=== PATIENT | male | born 1960 | race African-American/Black ===

== ENCOUNTER 2019-12-14 10:16 | Inpatient (IN) | payer OTHER ==
[~2019-12-14] VITALS: Ht 175.2 cm; Wt 95.5 kg
[2019-12-14 10:33] VITALS: BP 156/102
[2019-12-14 11:15] VITALS: BP 175/92
--- NOTE | 2019-12-14 11:15 | NUR ---
PATIENT BEDSIDE REPORT GIVEN TO SYLVIA HARRELL. PATIENT TAKEN UP BY THIS NURSE.
[2019-12-14] MEDS ORDERED: FLOMAX0.4 MG PO (11:51)
[2019-12-14] MEDS ORDERED: LISINOPRIL40 MG PO (11:51)
[2019-12-14] MEDS ORDERED: NORVASC5 MG PO (11:53)
[2019-12-14] MEDS ORDERED: FLUOXETINE40 MG PO (11:54)
--- NOTE | 2019-12-14 12:04 | NUR ---
MSADMTime: N A 59 year old MALE admitted to under services of NICOLE MENDEZ DO Pt. arrived via CART from ER. Chief complaint: MERLENE. SYLVIA MAN
[2019-12-14 12:52] LABS: BASO % 0.3 % (0.0-1.0); EOS % 0.5 % (1.0-4.0); LYMPH # 2.9 10*3/uL (1.3-4.4); LYMPH % 43.6 % (27.0-41.0); MEAN CORPUSCULAR HGB 27.9 pg (27.0-31.0); MEAN CORPUSCULAR HGB CONC 32.9 g/dl (33.0-37.0); MEAN PLATELET VOLUME 10.4 fl (9.6-12.3); MONO # 0.7 10*3/uL (0.1-1.0); MONO % 10.3 % (3.0-9.0); NEUT % 45.1 % (47.0-73.0); PLATELET COUNT AUTOMATED 174 10*3/uL (130-400); RED BLOOD COUNT 4.94 10*6/uL (4.50-5.90); RED CELL DISTRI WIDTH 14.1 % (0-14.5); WHITE BLOOD COUNT 6.6 10*3/uL (4.8-10.8)
[2019-12-14 13:00] VITALS: BP 163/95
[2019-12-14 13:08] LABS: ALBUMIN 3.6 gm/dl (3.1-4.5); ALKALINE PHOSPHATASE 117 U/L (45-117); BUN 14 mg/dl (7-24); CHLORIDE 108 mmol/L (98-107); CREATININE 1.06 mg/dL (0.70-1.30); POTASSIUM 3.9 mmol/L (3.5-5.1); SGOT/AST 151 IU/L (3-35); SGPT/ALT 127 U/L (12-78); SODIUM 138 mmol/L (136-145)
[2019-12-14 13:10] LABS: ETHYL ALCOHOL < 3.0 mg/dl (<3)
[2019-12-14 13:29] LABS: CLARITY SL CLOUDY (CLEAR); COLOR YELLOW (YELLOW)
[2019-12-14 13:33] LABS: BILIRUBIN 1+ (NEGATIVE); BLOOD NEGATIVE (NEGATIVE); GLUCOSE NEGATIVE (NEGATIVE); KETONE NEGATIVE (NEGATIVE); LEUKO ESTERASE NEGATIVE (NEGATIVE); NITRITE NEGATIVE (NEGATIVE)
[2019-12-14 13:34] LABS: URINE AMPHETAMINES < 1000 (1000ng/ml); URINE BARBITURATES < 200 (200ng/ml); URINE BENZODIAZEPINES > 200 (200ng/ml); URINE CANNABINOIDS (THC) > 50 (50ng/ml); URINE COCAINE < 300 (300ng/ml); URINE METHADONE < 300 (300ng/ml); URINE OPIATES < 300 (300ng/ml)
[2019-12-14 13:35] LABS: BACTERIA 2+
[2019-12-14 13:36] LABS: FINE GRANULAR CAST TNTC; MUCOUS 1+
[2019-12-14 13:41] LABS: URINE PHENCYCLIDINE < 25 (25ng/ml)
--- NOTE | 2019-12-14 14:48 | NUR ---
[place] Staff in to see patient. Patient meets [facility] Criteria. [facility]. Kenrick Smith M.A.Gregg, Boiler Tube Reamer.
[2019-12-14 16:00] VITALS: BP 156/89
[2019-12-14 20:00] VITALS: BP 150/62
[2019-12-15] VITALS (8 sets, daily range): BP systolic 158–200; BP diastolic 72–110
--- NOTE | 2019-12-15 00:19 | NUR ---
NOTIFIED DR. BELLE OF PATIENTS BP, 192/100. PATIENT ASYMPTOMATIC. SEE NEW ORDERS
--- NOTE | 2019-12-15 02:20 | NUR ---
NOTIFIED DR. BELLE OF [facility]. SEE NEW ORDERS.
--- NOTE | 2019-12-15 13:06 | NUR ---
[place] STAFF IN TO SEE PATIENT. PATIENT IS GOING TO [facility]. PATIENT IS SCHEDULED TO GO THURSDAY, December. PATIENT REPORTS THAT HE WILL GO HOME FIRST ON THURSDAY AFTER HE DISCHARGES FROM [facility] AND REPORT TO [facility] ON THURSDAY MORNING. PATIENT AGREES AND UNDERSTANDS HIS AFTERCARE PLAN. CASTILLO DOBSON B.A. ENERGY AND CONSERVATION TECHNICIAN
[2019-12-16] VITALS: BP 175/96
--- NOTE | 2019-12-16 00:30 | NUR ---
NOTIFIED DR. BELLE OF BP. NO NEW ORDERS RECEIVED. WILL CONTINUE TO MONITOR.
[2019-12-16 04:00] VITALS: BP 158/80
--- NOTE | 2019-12-16 04:00 | NUR ---
PATIENT SLEEPING, NO SIGNS OF DISTRESS. RESPIRATIONS EASY, NON LABORED. WILL CONTINUE TO MONITOR.
[2019-12-16 08:00] VITALS: BP 151/87
[2019-12-16 12:00] VITALS: BP 126/79; BP 148/79
[2019-12-16 16:00] VITALS: BP 139/86
--- NOTE | 2019-12-16 17:09 | NUR ---
[facility] staff to see patient and confirm after care plan of [facility] upon discharge. Kenrick Smith M.A.Ed, Nursery School Attendant.
--- NOTE | 2019-12-16 19:50 | NUR ---
MEDICATED WITH TYLENOL FOR C/O HEADACHE.
[2019-12-16 20:00] VITALS: BP 159/103
--- NOTE | 2019-12-16 20:30 | NUR ---
VOICES NO FURTHER C/O HEADACHE AT THIS TIME; TYLENOL EFFECTIVE.
--- NOTE | 2019-12-16 21:02 | NUR ---
CALLED RESIDENT TO REPORT ELEVATED BP; NO ANSWER. WILL TRY AGAIN.
--- NOTE | 2019-12-16 21:10 | NUR ---
CALLED DR. BELLE PERTAINING TO PATIENT'S ELEVATED BP; NO NEW ORDERS RECEIVED.
--- NOTE | 2019-12-16 21:34 | NUR ---
MEDICATED WITH VISTARIL FOR C/O ANXIETY.
--- NOTE | 2019-12-16 22:20 | NUR ---
RESTING IN BED WITH EYES CLOSED; VISTARIL GIVEN EARLIER APPARENTLY EFFECTIVE.
[2019-12-17] VITALS (7 sets, daily range): BP systolic 142–183; BP diastolic 78–100
--- NOTE | 2019-12-17 01:37 | NUR ---
MEDICATED WITH APRESOLINE PER M.D. ORDERS FOR ELEVATED BP.
--- NOTE | 2019-12-17 06:05 | NUR ---
CALLED DR. BELLE PERTAINING TO PT'S ELEVATED BLOOD PRESSURE & PATIENT REFUSING BLOOD WORK.
--- NOTE | 2019-12-17 08:36 | NUR ---
PT MEDICATED WITH PO ROBAXIN AND VISTARIL PER PRN ORDER FOR C/O MUSCLE ACHES AND ANXIETY. WILL MONITOR EFFECTIVENESS.
--- NOTE | 2019-12-17 09:02 | NUR ---
NOTIFIED REGARDING AM BP. NO NEW ORDERS AT THIS TIME. WILL RECHECK BP IN 1 HOUR.
--- NOTE | 2019-12-17 09:36 | NUR ---
ROBAXIN AND VISTARIL EFFECTIVE AT THIS TIME. WILL CONTINUE TO MONITOR.
--- NOTE | 2019-12-17 10:00 | NUR ---
BP NOW 156/78. EARLIER MEDS APPEAR EFFECTIVE AT THIS TIME. WILL CONTINUE TO MONITOR.
--- NOTE | 2019-12-17 10:49 | NUR ---
LAB CALLED REGARDING PENDING BLOODWORK ORDERED. PT REFUSED THIS AM. PER KAREN MYRICK TO DISCONTINUE LABS ORDERED THIS AM.
--- NOTE | 2019-12-17 16:00 | NUR ---
Patient resting. Responding to scheduled medications with fewer complaints of pain and anxiety.
--- NOTE | 2019-12-17 17:36 | NUR ---
PT MEDICATED WITH PO MAALOX AND BENTYL PER PRN ORDER FOR C/O INDIGESTION AND STOMACH CRAMPS. WILL MONITOR EFFECTIVENESS.
--- NOTE | 2019-12-17 18:36 | NUR ---
EARLIER MEDS EFFECTIVE AT THIS TIME.
--- NOTE | 2019-12-17 21:30 | NUR ---
REFUSES ANY PRN MEDICATIONS.
[2019-12-18] VITALS: BP 148/76
--- NOTE | 2019-12-18 | NUR ---
RESTING IN BED WITH EYES CLOSED; CALL LIGHT WITHIN REACH.
--- NOTE | 2019-12-18 07:55 | NUR ---
PT MEDICATED WITH PO ROBAXIN, MOTRIN AND VISTARIL PER PRN ORDER FOR C/O MUSCLE ACHES, RIGHT HIP PAIN AND ANXIETY. RATES PAIN 12/11. WILL MONITOR EFFECTIVENESS. CALL LIGHT WITHIN REACH.
--- NOTE | 2019-12-18 07:57 | NUR ---
IN TO SEE PATIENT REGARDING PLAN OF CARE.
[2019-12-18 08:00] VITALS: BP 158/90
--- NOTE | 2019-12-18 08:55 | NUR ---
EARLIER MEDS EFFECTIVE AT THIS TIME. WILL CONTINUE TO MONITOR.
--- NOTE | 2019-12-18 09:33 | NUR ---
IN TO SEE PATIENT.
--- NOTE | 2019-12-18 11:38 | NUR ---
PT MEDICATED WITH PO SENOKOT AND BENTYL PER PRN ORDER FOR C/O CONSTIPATION AND ABD CRAMPS. WILL MONITOR EFFECTIVENESS.
[2019-12-18 12:00] VITALS: BP 150/82
[2019-12-18 16:00] VITALS: BP 123/87
--- NOTE | 2019-12-18 16:00 | NUR ---
PATIENT RESTING. NO VOICED COMPLAINTS. VSS. WILL CONTINUE TO MONITOR. CALL LIGHT WITHIN REACH.
[2019-12-18 20:00] VITALS: BP 160/80
--- NOTE | 2019-12-18 20:00 | NUR ---
PT AWAKE IN BED. DENIES ANY NEEDS. WILL MONITOR.
--- NOTE | 2019-12-18 22:07 | NUR ---
PT ASLEEP IN BED, EASILY AROUSABLE. DENIES ANY NEEDS. WILL MONITOR. CALL LIGHT IN REACH.
[2019-12-19] VITALS: BP 154/79
[2019-12-19 08:00] VITALS: BP 160/52
--- NOTE | 2019-12-19 08:43 | NUR ---
MEDICATED WITH PRN MAALOX FOR CO CONSTIPATION. WILL ASSESS EFFECTIVENESS.
--- NOTE | 2019-12-19 09:43 | NUR ---
PER PATIENT MAALOX EFFECTIVE.
--- NOTE | 2019-12-19 09:45 | NUR ---
PATIENT HAVING QUESTIONS ABOUT HOW HE IS GOING TO GET CLOTHES AND THINGS [facility] CASTILLO FROM [facility] CONTACTED AND STATES SHE IS GOING TO COME TALK TO THE PATIENT.
[2019-12-19] MEDS ORDERED: METOPROLOL SUCC25 M2 PO (09:50)
[2019-12-19] MEDS ORDERED: ATARAX,VISTARIL50 MG PO (09:50)
[2019-12-19] MEDS ORDERED: ZOFRAN 4 MG ED2 TAB PO (09:50)
[2019-12-19] MEDS ORDERED: AMLODIPINE BESY10 MG PO (09:50)
--- NOTE | 2019-12-19 11:31 | NUR ---
MEDICATED WITH PRN IMMODIUM FOR CO DIARRHEA.
[2019-12-19 12:00] VITALS: BP 154/68
--- NOTE | 2019-12-19 12:31 | NUR ---
IMMODIUM EFFECTIVE PER PATIENT.
--- NOTE | 2019-12-19 12:40 | NUR ---
Discharge instructions reviewed with patient/family. Patient receptive and verbalizes understanding. Follow-up care arranged. Written instructions given to patient/family. PATIENT LEFT IN CARE OF IBIS CLARK
== END 2019-12-19 12:40 | disposition home or self-care (01) | DRG 773 ==
LOC: ED 10:16 → 4E 10:47 → EDHOLD 10:47 → 4E 11:17
PROVIDERS: Registered Nurse; ADMIT Internal Medicine
DX: F11.23 Opioid dependence with withdrawal (principal); F32.9 Major depressive disorder, single episode, unspecified; F17.210 Nicotine dependence, cigarettes, uncomplicated; F10.10 Alcohol abuse, uncomplicated; N40.0 Benign prostatic hyperplasia without lower urinary tract symptoms; I10 Essential (primary) hypertension; Z79.899 Other long term (current) drug therapy